=== PATIENT | male | born 1985 ===

== ENCOUNTER 2025-11-03 05:35 | Day surgery (SDC) | payer OTHER ==
[~2025-11-03 05:35] MED LIST: MOUNJARO2.5 MG/0.5; TOPROL XL25 M1
[2025-11-03] MEDS ORDERED: CEFAZOLIN SODIUM 1,000 MG VIAL ONE ×2 (06:30→07:39)
[2025-11-03] MEDS ORDERED: BUPIVACAINE HCL/MPF 0.5% 30ML VIAL ONE (07:38)
[2025-11-03] MEDS ORDERED: BUPIVACAINE HCL/Mpf 0.5% 10ML VIAL ONE (07:39)
[2025-11-03] MEDS ORDERED: TYLENOL ARTHRI650 MG PO (07:45)
[2025-11-03] MEDS ORDERED: NEURONTIN300 MG PO (07:45)
[2025-11-03] MEDS ORDERED: MIRALAX17 GM PO (07:45)
[2025-11-03] MEDS ORDERED: KETO10TA2 PO (07:45)
[2025-11-03] MEDS ORDERED: TRAMADOL HCL50 MG PO (07:45)
[2025-11-03] MEDS ORDERED: SUGAMMADEX SODIUM 200 MG/2 ML VIAL IV ONE (08:32)
[2025-11-03] MEDS ORDERED: KETOROLAC TROMETHAMINE 30 MG VIAL ONE (08:32)
== END 2025-11-03 11:50 | disposition home or self-care (01) ==
LOC: CIR.AMB 05:35 → U 07:00 → CIR.AMB 07:00
PROVIDERS: ATTEND Surgery
DX: K42.0 Umbilical hernia with obstruction, without gangrene (principal)